=== PATIENT | male | born 1970 | race Caucasian/White ===

== ENCOUNTER 2018-06-29 11:38 | Emergency (ER) | payer OTHER ==
--- NOTE | 2018-06-29 11:59 | ERPHSYRPT ---
- History of Present Illness Time Seen by Provider: 06/29/18 11:38 Source: patient Exam Limitations: clinical condition Patient Subjective Stated Complaint: pt states "she said I fell" I dont know. you ask her. I don't remember anything. was working on a house, doing [place]. bystander heard him fall off the ladder onto his head, fell approx 10- 12 feet. states he lost consciousness for about 5 minutes. got up and could not remember falling. pt denies pain. states left side of his head is a little sore. Triage Nursing Assessment: Pt entered through ambulance bay, Alert to name, knows date of and current location. does not remember what he was doing or fall. unable to give year or date. BECCA, gait steady. no open wounds noted. Physician History: PATIENT STATES HE WAS STANDING ON LADDER HOLDING SHINGLES, LADDER SLIPPED AND BYSTANDER STATES PATIENT FELL TO WOODEN DECK, STRIKING THE LEFT SIDE OF HIS HEAD. PATIENT COMPLAINS OF SCALP SORENESS, UNSURE OF EVENTS. BYSTANDER STATES PATIENT HAS LOSS OF CONSCIOUSNESS FOR 5 MINUTES. PATIENT DENIES HEADACHE, NECK PAIN, BLURRED VISION, NAUSEA, FOCAL NUMBNESS, TINGLING OR WEAKNESS IN EXTREMITES. Occurred: just prior to arrival Reason for Fall: slipped (LADDER SLIPPED) Injuries/Pain Location: head, upper extremity, lower extremity Loss of Consciousness: no loss of consciousness, prolonged (minutes) (5 MINUTES) Quality: other (SORENESS) Severity of Pain-Max: mild Severity of Pain-Current: mild Modifying Factors: Improves With: nothing Associated Symptoms (Fall): other (PAIN IN LEFT HIP) Allergies/Adverse Reactions: No Known Drug Allergies Allergy (Unverified 06/29/18 12:09) Hx Tetanus, Diphtheria Vaccination/Date Given: No Hx Influenza Vaccination/Date Given: No Hx Pneumococcal Vaccination/Date Given: No Immunizations Up to Date: No - Review of Systems Constitutional: No Fever, No Chills Eyes: No Symptoms Ears, Nose, & Throat: No Symptoms Respiratory: No Symptoms, No Cough, No Dyspnea Cardiac: No Symptoms, No Chest Pain, No Edema, No Syncope Abdominal/Gastrointestinal: No Symptoms, No Abdominal Pain, No Nausea, No Vomiting, No Diarrhea Genitourinary Symptoms: No Symptoms, No Dysuria Musculoskeletal: Injury, Other (LEFT HIP SORENESS), No Back Pain, No Neck Pain Skin: No Rash Neurological: Other (SORENESS OVER LEFT SIDE OF SCALP), No Dizziness, No Focal Weakness, No Sensory Changes Psychological: No Symptoms Endocrine: No Symptoms All Other Systems: Reviewed and Negative - Past Medical History Pertinent Past Medical History: No Neurological History: No Pertinent History ENT History: No Pertinent History Cardiac History: No Pertinent History Respiratory History: No Pertinent History Endocrine Medical History: No Pertinent History Musculoskeletal History: No Pertinent History GI Medical History: No Pertinent History History: No Pertinent History Psycho-Social History: No Pertinent History Male Reproductive Disorders: No Pertinent History - Past Surgical History Past Surgical History: No Neuro Surgical History: No Pertinent History Cardiac: No Pertinent History Respiratory: No Pertinent History Gastrointestinal: No Pertinent History Genitourinary: No Pertinent History Musculoskeletal: No Pertinent History Male Surgical History: No Pertinent History - Social History Smoking Status: Never smoker Exposure to second hand smoke: No Drug Use: none Patient Lives Alone: No - Nursing Vital Signs Nursing Vital Signs: Initial Vital Signs Temperature 97.9 F 06/29/18 11:39 Pulse Rate 110 H 06/29/18 11:39 Respiratory Rate 20 06/29/18 11:39 Blood Pressure 135/80 06/29/18 11:39 O2 Sat by Pulse Oximetry 98 06/29/18 11:39 Pain Scale Pain Intensity 3 - [place] Coma Score Best Eye Response ([place]): (4) open spontaneously Best Verbal Response ([place]): (5) oriented Best Motor Response ([place]): (6) obeys commands Miracle Total: 15 - Physical Exam General Appearance: no apparent distress, alert Head Injury: tenderness (OVER LEFT PARIETAL SCALP, NO CREPITUS NO SWELLING) Eye Exam: PERRL/EOMI ENT Exam: airway nml Neck Exam: other (APPLICATION OF RIGID CERVICAL COLLAR, NO POST CERVICAL SPINAL TENDERNESS) Cardiovascular Exam: normal heart sounds, regular rate/rhythm Gastrointestinal Exam: soft, normal bowel sounds (NONTENDER) Back Exam: normal inspection, normal range of motion (THERE IS NO THORACIC OR LUMBAR VERTEBRAL TENDERNESS, PARASPINAL TENDERNESS, NO CVA TENDERNESS) Extremity Exam: tenderness (LEFT GREATER TROCHANTER, NO CREPITUS, SWELLING OR ECCHYMOSIS, THERE IS FULL RANGE OF MOTION LEFT HIP, NO PELVIC TENDERNESS, RIGHT HAND, TENDERNESS MID THENAR EMINENCE, MINIMAL SWELLING OR ECCHYMOSIS) Peripheral Pulses: carotid (R): 2+, carotid (L): 2+, femoral (R): 2+, femoral (L ): 2+, dorsalis-pedis (R): 2+, dorsalis-pedis (L): 2+ Neurologic Exam: alert, oriented x 3, cooperative Skin Exam: normal color SpO2 Interpretation: normal SpO2: 99 O2 Delivery: Room Air - Radiology Exams Left Hip X-ray Interpretation: Reviewed by me, Negative, No Fracture (NO DISLOCATION) Right Hand X-ray Interpretation: Reviewed by me, Negative, No Fracture - CT Exams Head CT Interpretation: Discussed w/radiologist, No/Intracranial Hemorrhag Cervical Spine CT Interpretation: Discussed w/radiologist (MINIMAL C4-C6 DEGENERATIVE ENDPLATE SPURRING, MINIMAL C4-C6 DISC SPACE NARROWING) Ordered Tests: Active Orders 24 hr Category Date Time Status EKG-ER Only STAT Care 06/29/18 11:41 Active CERVICAL SPINE WO CONTRAST [CT] Stat Exams 06/29/18 11:42 Completed HAND (MINIMUM 3 VIEWS) Stat Exams 06/29/18 12:20 Completed HEAD WITHOUT CONTRAST [CT] Stat Exams 06/29/18 11:41 Completed HIP UNI (2V) INCL PEL IF DONE Stat Exams 06/29/18 12:19 Completed BMP Stat Lab 06/29/18 12:48 Completed CBC W DIFF Stat Lab 06/29/18 12:48 Completed Medication Summary Discontinued Medications Generic Name Dose Route Start Last Admin Trade Name Freq PRN Reason Stop Dose Admin Diphtheria/Tetanus/Acell Pertussis 0.5 ml 06/29/18 12:23 06/29/18 13:00 Adacel Vial IM 06/29/18 12:24 0.5 ml .ONCE ONE Administration Diphtheria/Tetanus/Acell Pertussis Confirm 06/29/18 12:51 Adacel Vial Administered 06/29/18 12:52 Dose 0.5 ml IM .STK-MED ONE Lab/Rad Data: Laboratory Result Diagrams 06/29/18 12:48 06/29/18 12:48 Laboratory Results 06/29/18 06/29/18 Range/Units 12:48 12:48 WBC 8.8 (4.0-10.5) K/mm3 RBC 4.67 (4.1-5.6) M/mm3 Hgb 14.0 (12.5-18.0) gm/dl Hct 42.2 (42-50) % MCV 90.4 (78-100) fl MCH 30.0 (26-32) pg MCHC 33.2 (32-36) g/dl RDW 12.4 (11.5-14.0) % Plt Count 263 (150-450) K/mm3 MPV 9.3 (6-9.5) fl Gran % 83.3 H (36.0-66.0) % Eos # (Auto) 0.03 (0-0.5) Absolute Lymphs (auto) 1.05 (1.0-4.6) Absolute Monos (auto) 0.38 (0.0-1.3) Lymphocytes % 11.9 L (24.0-44.0) % Monocytes % 4.3 (0.0-12.0) % Eosinophils % 0.3 (0.00-5.0) % Basophils % 0.2 (0.0-0.4) % Absolute Granulocytes 7.36 H (1.4-6.9) Basophils # 0.02 (0-0.4) Sodium 139 (137-145) mmol/L Potassium 3.7 (3.5-5.1) mmol/L Chloride 106 (98-107) mmol/L Carbon Dioxide 27 (22-30) mmol/L Anion Gap 9.6 (5-15) MEQ/L BUN 19 (9-20) mg/dL Creatinine 0.82 (0.66-1.25) mg/dL Estimated GFR > 60.0 ML/MIN Glucose 94 (74-106) mg/dL Calcium 9.4 (8.4-10.2) mg/dL - Progress Progress Note: 06/29/18 12:50 PATIENT GIVEN TETNUS ADACEL 0.5ML IM - Departure Departure Disposition: Home Clinical Impression: PARIETAL SCALP CONTUSION, CONCUSSION Condition: Stable Critical Care Time: No Additional Instructions: TYLENOL EVERY 4 HOURS NEEDED FOR PAIN. APPLY ICE OVER SCALP SWELLING EVERY 4 HOURS, 30MINUTES FOR 48 HOURS. FOLLOW HEAD INJURY INSTRUCTIONS FOR 24 HOURS.
[2018-06-29] MEDS ORDERED: Adacel Vial IM ONE ×2 (12:23→12:51)
--- NOTE | 2018-06-29 12:28 | XRAY ---
Indication: Pain following fall off ladder. Multiple contiguous axial images obtained through the head without contrast. Comparison: None Normal appearing brain parenchyma, ventricles, and bony calvarium. Visualized paranasal sinuses and mastoid air cells are clear. Impression: Normal CT head without contrast exam. CT DI 71.05
--- NOTE | 2018-06-29 12:31 | XRAY ---
Indication: Pain following fall off ladder. Multiple contiguous axial images obtained through the cervical spine. Sagittal and coronal reformatted images obtained. Comparison: None Axial images negative for acute fracture, suspicious bony lesions, or spinal canal stenosis. Minimal C4-C6 degenerative endplate spurring. Sagittal and coronal reformatted images demonstrates cervical lordotic straightening, positional versus paraspinal spasm. Minimal C4-C6 disc space narrowing. No acute compression fracture, subluxation, or jumped facet. Normal appearing craniocervical junction. Visualized noncontrasted soft tissues including base of the brain and lung apices unremarkable. Impression: 1. Negative acute fracture/subluxation. 2. Cervical lordotic straightening, positional versus paraspinal spasm. 3. C4-C6 degenerative changes. CT DI 51.79
--- NOTE | 2018-06-29 12:45 | XRAY ---
Indication: Pain following fall off ladder. Comparison: None 3 views of the right hand demonstrates normal bones, articulation, and soft tissues.
--- NOTE | 2018-06-29 12:45 | XRAY ---
Indication: Pain following fall off ladder. Comparison: None 2 views of the left hip demonstrates normal bones, articulation, and soft tissues.
[2018-06-29 12:54] LABS: BASOPHIL % 0.2 % (0.0-0.4); Basophil (Absolute #) 0.02 (0-0.4); Eosinophil % 0.3 % (0.00-5.0); Eosinophil (Absolute #) 0.03 (0-0.5); Granulocyte Absolute (ANC) 7.36 (1.4-6.9); Granulocytes % 83.3 % (36.0-66.0); Hematocrit 42.2 % (42-50); Lymphocyte (Absolute #) 1.05 (1.0-4.6); Lymphocytes % 11.9 % (24.0-44.0); Mean Cell Volume 90.4 fl (78-100); Mean Corpuscular Hgb Concent. 33.2 g/dl (32-36); Mean Platelet Volume 9.3 fl (6-9.5); Monocyte (Absolute #) 0.38 (0.0-1.3); Monocytes % 4.3 % (0.0-12.0); Platelet Count 263 K/mm3 (150-450); Red Blood Count 4.67 M/mm3 (4.1-5.6); Red Cell Distribution Width 12.4 % (11.5-14.0); White Blood Count 8.8 K/mm3 (4.0-10.5)
[2018-06-29 13:02] LABS: ANION GAP 9.6 MEQ/L (5-15); BLOOD UREA NITROGEN 19 mg/dL (9-20); CHLORIDE 106 mmol/L (98-107); Calcium 9.4 mg/dL (8.4-10.2); Carbon Dioxide 27 mmol/L (22-30); Creatinine 1 0.82 mg/dL (0.66-1.25); Glucose 94 mg/dL (74-106); Potassium 3.7 mmol/L (3.5-5.1); SODIUM 139 mmol/L (137-145)
[2018-06-29 13:27] VITALS: BP 126/70; PULSE 88; O2SAT 98
== END 2018-06-29 13:24 | disposition home or self-care (01) ==
LOC: ED 11:38 → MERGE 11:38 → ED 13:24
DX: S00.03XA Contusion of scalp, initial encounter (principal); S06.0X1A Concussion with loss of consciousness of 30 minutes or less, initial encounter; W17.89XA Other fall from one level to another, initial encounter; M25.552 Pain in left hip
CPT/HCPCS: 36415; 70450; 72125; 73130; 73502; 80048; 85025; 90471; 90715; 93005; 99284

== ENCOUNTER 2018-07-05 04:44 | Emergency (ER) | payer OTHER ==
[2018-07-05 05:01] VITALS: PULSE 66; O2SAT 100
--- NOTE | 2018-07-05 05:49 | ERPHSYRPT ---
- History of Present Illness Time Seen by Provider: 07/05/18 05:12 Source: patient Exam Limitations: clinical condition Patient Subjective Stated Complaint: Fell off of roof (appx 10 feet) on Monday and lost consciousness. Has since had left sided rib pain that is worse with coughing and yawning. Also has swollen and bruised left hip. Triage Nursing Assessment: Pt alert and oriented x 3. Skin color normal for race. Does not appear to be in any apparent distress. Lung sounds clear anterior /posterior bilateral throughout. Bruising is noted to left clavicle area. Denies any SOB. Physician History: PATIENT FELL OFF LADDER HEIGHT OF 10 FEET SUSTAINED A CONCUSSION 6 DAYS AGO AND A LEFT HIP CONTUSION. DEVELOPED ONSET OF LEFT RIB PAIN TOWARD HIS BACK, 4 DAYS AGO AFTER PUSHING HEAVY BROOM AT WORK. DENIES SHORTNESS OF BREATH, DIFFICULTY BREATHING. LEFT SIDED CHEST PAIN IS WORSE UPON LIFTING. HE DENIES BRUSING OVER HIS CHEST. Occurred: days ago (4) Reason for Fall: slipped Injuries/Pain Location: head, chest, lower extremity Loss of Consciousness: no loss of consciousness Quality: aching Severity of Pain-Max: moderate Severity of Pain-Current: moderate Modifying Factors: Improves With: movement, other (PAIN WORSE UPON LIFTING) Allergies/Adverse Reactions: Penicillins Allergy (Verified 07/05/18 05:01) Hx Tetanus, Diphtheria Vaccination/Date Given: No Hx Influenza Vaccination/Date Given: No Hx Pneumococcal Vaccination/Date Given: No - Review of Systems Constitutional: No Fever, No Chills Eyes: No Symptoms Ears, Nose, & Throat: No Symptoms Respiratory: No Cough, No Dyspnea Cardiac: Chest Pain, No Edema, No Syncope Abdominal/Gastrointestinal: No Abdominal Pain, No Nausea, No Vomiting, No Diarrhea Genitourinary Symptoms: No Dysuria Musculoskeletal: No Back Pain, No Neck Pain Skin: No Rash Neurological: No Dizziness, No Focal Weakness, No Sensory Changes Psychological: No Symptoms Endocrine: No Symptoms All Other Systems: Reviewed and Negative - Past Medical History Pertinent Past Medical History: No Neurological History: Other ENT History: No Pertinent History Cardiac History: No Pertinent History Respiratory History: No Pertinent History Endocrine Medical History: No Pertinent History Musculoskeletal History: No Pertinent History GI Medical History: No Pertinent History History: No Pertinent History Psycho-Social History: No Pertinent History Male Reproductive Disorders: No Pertinent History Other Medical History: concussion - Past Surgical History Past Surgical History: No Neuro Surgical History: No Pertinent History Cardiac: No Pertinent History Respiratory: No Pertinent History Gastrointestinal: No Pertinent History Genitourinary: No Pertinent History Musculoskeletal: No Pertinent History Male Surgical History: No Pertinent History - Social History Smoking Status: Never smoker Exposure to second hand smoke: No Drug Use: none Patient Lives Alone: No - Nursing Vital Signs Nursing Vital Signs: Initial Vital Signs Temperature 97.6 F 07/05/18 04:53 Pulse Rate 66 07/05/18 04:53 Respiratory Rate 12 07/05/18 04:53 Blood Pressure 120/77 07/05/18 04:53 O2 Sat by Pulse Oximetry 100 07/05/18 04:53 Pain Scale Pain Intensity 10 - [place] Coma Score Best Eye Response ([place]): (4) open spontaneously Best Verbal Response ([place]): (5) oriented Best Motor Response ([place]): (6) obeys commands [place] Total: 15 - Physical Exam General Appearance: no apparent distress Head Injury: no evidence of injury Eye Exam: PERRL/EOMI ENT Exam: airway nml Respiratory/Chest Exam: chest tenderness (LEFT LATERAL RIBS 6TH TO 10TH RIBS, NO CREPITUS OR ECCHYMOSIS), normal breath sounds Cardiovascular Exam: normal heart sounds Gastrointestinal Exam: soft, normal bowel sounds Back Exam: normal inspection SpO2: 100 - Radiology Exams Chest X-ray Interpretation: Interpreted by me, Negative, No Fracture, No Infiltrates Left Ribs X-ray Interpretation: Interpreted by me (DISPLACED FRACTURE LEFT 7TH RIB, NONDISPLACED FRACTURE LEFT 8TH RIB, NO PNEUMOTHORAX) Ordered Tests: Active Orders 24 hr Category Date Time Status CHEST 2 VIEWS (PA AND LAT) Stat Exams 07/05/18 05:17 Ordered RIBS UNILATERAL Stat Exams 07/05/18 05:15 Ordered - Progress Counseled pt/family regarding: diagnosis, need for follow-up, rad results - Departure Departure Disposition: Home Clinical Impression: LEFT 7TH /8TH RIB FRACTURES Condition: Stable Critical Care Time: No Referrals: DOCTOR,NO FAMILY [Primary Care Provider] - Additional Instructions: AVOID LIFTING, PULLING OR PUSHING WITH LEFT ARM OVER 3 POUNDS UNTIL 07/10/2018. NORCO 10/325 EVERY 6 HOURS FOR PAIN NEEDED. RETURN TO EMERGENCY FOR ONSET OF SHORTNESS OF BREATH OR DIFFICULTY BREATHING. CONSULT YOUR PRIMARY CARE PROVIDER FOR FOLLOWUP. Prescriptions: Hydrocodone/APAP 10/325 mg [[place] 10/325 MG Tablet] 1 tab PO Q6H PRN PRN # 15 tablet MDD 4 PRN Reason: Pain
[2018-07-05] MEDS ORDERED: Norco 10/325 MG Tablet PO ONE (06:03)
[2018-07-05] MEDS ORDERED: Norco 10/325 MG Tablet ONE (06:08)
[2018-07-05 06:28] VITALS: BP 117/75
--- NOTE | 2018-07-05 09:51 | XRAY ---
Indication: Pain following fall 6 days ago. Comparison: None 2 views of the left ribs demonstrates minimally displaced fractures involving the lateral arc of the 7/8 ribs. No other bony, articular, or soft tissue abnormalities.
--- NOTE | 2018-07-05 09:53 | XRAY ---
Indication: Left-sided rib pain following fall 6 days ago. Comparison: None PA/lateral chest hyperinflated and clear with incidental tiny calcified granulomas. Heart and mediastinal structures within normal limits. Bony thorax demonstrates left 7/8 rib fractures.
== END 2018-07-05 06:35 | disposition home or self-care (01) ==
LOC: ED 04:44 → MERGE 04:44 → ED 06:35
DX: S22.42XA Multiple fractures of ribs, left side, initial encounter for closed fracture (principal); R07.81 Pleurodynia; X50.0XXA Overexertion from strenuous movement or load, initial encounter; X50.9XXA Other and unspecified overexertion or strenuous movements or postures, initial encounter; Y93.89 Activity, other specified; Y92.89 Other specified places as the place of occurrence of the external cause; Y99.0 Civilian activity done for income or pay
CPT/HCPCS: 71046; 71100; 99283; A9270-GY

== ENCOUNTER 2023-07-06 11:13 | Emergency (ER) | payer OTHER ==
[2023-07-06 11:24] VITALS: BP 127/79; PULSE 74; RESP 20; TEMP 97.8; O2SAT 99
[2023-07-06] MEDS ORDERED: Xylocaine 2%-Epi 1:100,000 MDV IJ ONE (11:33)
--- NOTE | 2023-07-06 11:50 | ERPHSYRPT ---
- History of Present Illness Time Seen by Provider: 07/06/23 11:44 Source: patient, family Exam Limitations: no limitations Patient Subjective Stated Complaint: Pt states "I was lifting brush and a piece came right back and hit my upper lip." Triage Nursing Assessment: Pt presented alert and oriented X 3, skin pwd. Pt ambulates with an upright steady gait, able to speak in clear full sentences PT has laceration noted to upper lip. Physician History: Patient was throwing brush into a truck bed and a piece came back and hit him in the left upper lip suffering a laceration. He says all of his teeth feel like they are appropriate position. He denies any loss of consciousness or other injury. Timing/Duration: today Quality: painful Severity: mild Location: face (Left upper lip) Possible Causes: other (Laceration to the upper left upper lip) Allergies/Adverse Reactions: Penicillins Allergy (Verified 07/05/18 12:03) Home Medications: No Home Meds [No Home Meds] 1 [facility] 11/22/14 [History] Hx Tetanus, Diphtheria Vaccination/Date Given: Yes Hx Influenza Vaccination/Date Given: No Hx Pneumococcal Vaccination/Date Given: No Immunizations Up to Date: No Travel Risk - International Travel Have you traveled outside of the country in past 3 weeks: No - Emerging Infectious Disease Are you exhibiting symptoms associated with any current EIDs: No - Review of Systems Constitutional: No Fever, No Chills Eyes: No Symptoms Ears, Nose, & Throat: No Symptoms, Other Respiratory: No Cough, No Dyspnea Cardiac: No Chest Pain, No Edema, No Syncope Abdominal/Gastrointestinal: No Abdominal Pain, No Nausea, No Vomiting, No Diarrhea Genitourinary Symptoms: No Dysuria Musculoskeletal: No Back Pain, No Neck Pain Skin: No Rash Neurological: No Dizziness, No Focal Weakness, No Sensory Changes Psychological: No Symptoms Endocrine: No Symptoms All Other Systems: Reviewed and Negative - Past Medical History Pertinent Past Medical History: No Neurological History: Other ENT History: No Pertinent History Cardiac History: No Pertinent History Respiratory History: No Pertinent History Endocrine Medical History: No Pertinent History Musculoskeletal History: No Pertinent History GI Medical History: No Pertinent History History: No Pertinent History Psycho-Social History: No Pertinent History Male Reproductive Disorders: No Pertinent History Other Medical History: concussion - Past Surgical History Past Surgical History: No Neuro Surgical History: No Pertinent History Cardiac: No Pertinent History Respiratory: No Pertinent History Gastrointestinal: No Pertinent History Genitourinary: No Pertinent History Musculoskeletal: No Pertinent History Male Surgical History: No Pertinent History - Social History Smoking Status: Never smoker Exposure to second hand smoke: No Drug Use: none Patient Lives Alone: No - Nursing Vital Signs Nursing Vital Signs: Initial Vital Signs Temperature 97.8 F 07/06/23 11:20 Pulse Rate 74 07/06/23 11:20 Respiratory Rate 20 07/06/23 11:20 Blood Pressure 127/79 07/06/23 11:20 O2 Sat by Pulse Oximetry 99 07/06/23 11:20 Pain Scale Pain Intensity 0 - Physical Exam General Appearance: no apparent distress, mild distress, alert Eye Exam: PERRL/EOMI, eyes nml inspection Ears, Nose, Throat Exam: normal ENT inspection, pharynx normal, moist mucous membranes, other (Patient has a 1.25 cm laceration to the left upper lipDentition is secure occlusion appears normal) Neck Exam: normal inspection, non-tender, supple, full range of motion Respiratory Exam: normal breath sounds, lungs clear, No respiratory distress Cardiovascular Exam: regular rate/rhythm, normal heart sounds Gastrointestinal/Abdomen Exam: soft, mass, No tenderness Back Exam: normal inspection, normal range of motion, No CVA tenderness, No vertebral tenderness Extremity Exam: normal inspection, normal range of motion Neurologic Exam: alert, oriented x 3, cooperative, normal mood/affect, sensation nml, No motor deficits Skin Exam: normal color, warm, dry SpO2: 99 Procedures - Laceration/Wound Repair Left Upper Anterior Lip Time of Procedure: 11:48 Wound Location: face (Left upper lip) Wound Length (cm): 1.25 Wound's Depth, Shape: superficial Wound Explored: clean Irrigated: Yes Hibiclens Prep: Yes Anesthesia: 2% Lidocaine Volume Anesthetic (ccs): 2 Wound Debrided: minimal Wound Repaired With: sutures Suture Size/Type: 4-0 Number of Sutures: 2 Layer Closure?: No Sterile Dressing Applied?: No Splint Applied?: No Sling Applied?: No - Course Nursing assessment & vital signs reviewed: Yes Ordered Tests: Medication Summary Discontinued Medications Generic Name Dose Route Start Last Admin Trade Name Freq PRN Reason Stop Dose Admin Lidocaine/Epinephrine Confirm 07/06/23 11:33 Lidocaine Hcl/Epinephrine 2% 20 Ml Mdv Administered 07/06/23 11:34 Dose 1 ml IJ .STK-MED ONE - Progress Progress: improved Medical Desision Making - Independent Historian Additional History obtained from: Spouse - Risk of complications Minimal Risk: Minimal risk of morbidity - Departure Departure Disposition: Home Clinical Impression: Lip laceration Condition: Stable Critical Care Time: No Referrals: REBA MAURICE [Primary Care Provider] - Follow up/PCP as directed Instructions: Laceration Repair With Stitches (DC) Additional Instructions: Patient was instructed directed to watch for infection and to have the sutures removed in 5 to 7 days. Prescriptions: clindamycin HCL [Cleocin HCl] 300 mg PO TID 7 Days #21 cap
== END 2023-07-06 12:15 | disposition home or self-care (01) ==
LOC: ED 11:13
DX: S01.511A Laceration without foreign body of lip, initial encounter (principal); W20.8XXA Other cause of strike by thrown, projected or falling object, initial encounter; Y93.H2 Activity, gardening and landscaping
CPT/HCPCS: 12011; 99282